=== PATIENT | female | born 1990 | race Caucasian/White ===

== ENCOUNTER 2016-07-13 12:14 | Emergency (ER) | payer BC, OTHER ==
[~2016-07-13] VITALS: Ht 160 cm; Wt 54.5 kg
[~2016-07-13 12:14] MED LIST: IBUP600T26 PO; Z.0.BCPILL PO
[2016-07-13 12:16] VITALS: BP 134/88; PULSE 100; RESP 15; TEMP 98.2; O2SAT 98
[2016-07-13] MEDS ORDERED: IBUP800T23 PO (12:39)
[2016-07-13] MEDS ORDERED: ROBA750T PO (12:39)
[2016-07-13] MEDS ORDERED: predniSONE 20 MG TAB PO ONE (12:45)
--- NOTE | 2016-07-13 12:49 | PD ---
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 She states approximately 2 hours prior to exam she was lifting a 400 pound patient with the assistance of another employee and was bending over. After the lifting had been completed she turned to walk out of the room and when she turned her neck she felt a sharp pulling sensation in the left posterior lateral neck. Pain was sharp and eye 10 in severity. She took ibuprofen 800 mg which brought it down to 4 out of 10. She feels as if it is stiff and painful to move. The pain does not radiate. She denies any pain in the midline. She denies weakness and paresthesias. She denies current or missed menstrual cycles. [facility] Past Medical History Medical History: Denies Significant Hx Diminished Hearing: No Immunizations Current: Yes ?: Not LMP: 07/06/16 Past Surgical History Surgical History: No Previous Surgery Social History Alcohol Use: Yes (RARE) Tobacco Use: No Substance Use: No Allergies-Medications (Allergen,Severity, Reaction): Coded Allergies: Penicillin (Verified Allergy, Intermediate, 07/13/16) Sulfa (Verified Allergy, Intermediate, 07/13/16) Reported Meds & Prescriptions Reported Meds & Active Scripts Active No Active Prescriptions or Reported Medications Review of Systems Musculoskeletal: Positive: Other (see the history of present illness) Neurologic: No: Weakness, Focal Abnormalities, Paresthesia, Sensory Disturbance Physical Exam Narrative GENERAL: Well-developed and well-nourished adult female in no acute distress. SKIN: Warm and dry. Good turgor without tenting. HEAD: Normocephalic and atraumatic. EYES: PERRL bilaterally, 5mm. EOMI bilaterally. No injection or icterus present. No proptosis. Lids without edema or erythema. NECK: Patient has pain with palpation of the left sternocleidomastoid muscle. Reduced range of motion in flexion and extension secondary to pain. Patient is able to axially rotate to the left greater than the right. No midline tenderness, crepitus or step-offs. Trachea midline, no JVD. No cervical or facial lymphadenopathy. CARDIOVASCULAR: Regular rate and rhythm without murmurs, rubs, clicks or gallops. Radial pulses 2+ bilaterally. RESPIRATORY: Clear to auscultation bilaterally with symmetrical rise and fall, no distress or use of accessory muscles. MUSCULOSKELETAL: No gait disturbances. Patient freely moving all four extremities spontaneously. Extremities without clubbing, cyanosis, or edema. No obvious deformities. NEUROLOGIC: CN II-XII grossly intact. Awake and alert. Strength 5/5 bilateral shoulder flexion, shoulder extension, shoulder abduction, shoulder adduction, elbow flexion, elbow extension. Sensation intact and strength 5/5 over radial, median, and ulnar nerve distributions bilaterally. Bilateral triceps, biceps, and brachioradialis DTRs 2+. Negative bilateral [place] sign. Normal speech. PSYCHIATRIC: Appropriate mood and affect; insight and judgment normal. 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 She has no bony tenderness, severe loss of range of motion or neurovascular signs. She is neurovascularly intact. Ibuprofen has helped her pain, she is requesting something additional at this time. As she was driving I believe muscle relaxers or not recommended as a pose a sedation risk. We'll give the patient 40 mg of prednisone by mouth to aid in acute inflammation reduction. Prescription given for diclofenac and muscle relaxers for home use.See discharge paperwork for further instructions. The plan was discussed with the patient who acknowledged their understanding and agreement. Reinforced the follow-up with primary care is critically important. Patient instructed on emergent conditions that should prompt return to ED. Diagnosis Primary Impression: Strain of sternocleidomastoid muscle Qualified Code: S16.1XXA - Strain of sternocleidomastoid muscle, initial encounter Patient Instructions: Cervical Neck Strain Exercises (GEN), Cervical Strain (ED ), General Instructions Additional Instructions: Rest for 24 hours, then gradually resume normal activity Avoid maneuvers or positions that aggravate the pain Avoid twisting/bending or lifting heavy items Take medications as prescribed Your medications may cause drowsiness. Do not take with alcohol or sedatives. Do not operate a motor vehicle or heavy machinery while on medication. Warm, moist heat applied to painful areas hourly as needed Try to massage and stretch affected muscles after applying heat to speed recovery Follow-up with PCP in 1-2 days Return to ED for any acute worsening of symptoms Med/Other Pt SpecificInfo: Prescription(s) given Scripts Methocarbamol (Robaxin)750 Mg [id number] Mg PO QID PRN (MUSCLE SPASM) #40 TAB 2 tabs QID for 2 days, then 1 tab QID thereafter Prov:Chi Sparrow MD 07/13/16 Ibuprofen 800 Mg [id number] Mg PO Q8H #21 TAB Prov:Chi Sparrow MD 07/13/16 Disposition: 01 DISCHARGE HOME Condition: Stable Андрей Gandhi III Jul 13, 2016 12:48
== END 2016-07-13 13:23 | disposition home or self-care (01) ==
LOC: NEPB 12:14
DX: S16.1XXA Strain of muscle, fascia and tendon at neck level, initial encounter (principal); X50.0XXA Overexertion from strenuous movement or load, initial encounter; Y93.F2 Activity, caregiving, lifting; Y92.239 Unspecified place in hospital as the place of occurrence of the external cause
CPT/HCPCS: 99283; J7512

== ENCOUNTER 2017-09-20 05:13 | Emergency (ER) | payer OTHER ==
[~2017-09-20] VITALS: Ht 160 cm; Wt 55.0 kg
[~2017-09-20 05:13] MED LIST changes: +IBUP1TAB7 PO; -IBUP600T26 PO; +ROBA750T PO; -Z.0.BCPILL PO
[2017-09-20 05:15] VITALS: BP 113/62; PULSE 111; RESP 16; TEMP 98; O2SAT 100
[2017-09-20] MEDS ORDERED: SODIUM CHLOR 0.9% 1000 ML INJ 1,000 ML IV ONE (05:45)
[2017-09-20] MEDS ORDERED: KETOROLAC TROMETHAMINE 30 MG/ML (IVP) VIAL IVP ONE (05:45)
--- NOTE | 2017-09-20 05:59 | PD ---
HPI Chief Complaint: Abdominal Pain Time Seen by Provider: 05:28 Travel History International Travel<30 days: No Contact w/Intl Traveler<30days: No Traveled to known affect area: No History of Present Illness HPI Is a 27-year-old woman who presents to the emergency department complaining of sore throat, fevers chills, body aches, lightheadedness, all starting last night worsening throughout the night. States she got up to use the bathroom and walked into a wall and fell backward on the tile floor. She believes she got knocked out. She states she feels very poorly, and is worried about hitting her head. History Past Medical History Medical History: Denies Significant Hx Tetanus Vaccination: < 5 Years Influenza Vaccination: Yes LMP: 08/22/2017 Social History Alcohol Use: Yes (RARE) Tobacco Use: No Allergies-Medications (Allergen,Severity, Reaction): Coded Allergies: Sulfa (Sulfonamide Antibiotics) (Unverified Allergy, Intermediate, 09/20/17) penicillin G (Unverified Allergy, Intermediate, 09/20/17) Reported Meds & Prescriptions Reported Meds & Active Scripts Active Robaxin (Methocarbamol) 750 Mg Tab 750 Mg PO QID PRN 2 tabs QID for 2 days, then 1 tab QID thereafter Ibuprofen 800 Mg Tab 800 Mg PO Q8H Review of Systems Except as stated in HPI: all other systems reviewed are Neg Physical Exam Narrative GENERAL: Well-appearing 27-year-old woman, no acute distress. SKIN: Focused skin assessment warm/dry. HEAD: Atraumatic. Normocephalic. EYES: Pupils equal and round. No scleral icterus. No injection or drainage. ENT: No nasal bleeding or discharge. Mucous membranes pink and moist. TMs normal. Throat a little bit injected with some enlarged tonsils. No obvious purulence. NECK: Trachea midline. No midline tenderness. Full range of motion. No meningismus. CARDIOVASCULAR: Regular rate and rhythm. No murmur appreciated. RESPIRATORY: No accessory muscle use. Clear to auscultation. Breath sounds equal bilaterally. GASTROINTESTINAL: Abdomen soft, non-tender, nondistended. Hepatic and splenic margins not palpable. MUSCULOSKELETAL: No obvious deformities. No clubbing. No cyanosis. No edema. NEUROLOGICAL: Awake and alert. No obvious cranial nerve deficits. Motor grossly within normal limits. Normal speech. PSYCHIATRIC: Appropriate mood and affect; insight and judgment normal. Data Data Last Documented VS Vital Signs Date Time Temp Pulse Resp B/P (MAP) Pulse Ox O2 Delivery O2 Flow Rate FiO2 09/20/17 05:15 98.0 111 16 113/62 (79) 100 Orders Orders Iv Access Insert/Monitor (09/20/17 05:37) Complete Blood Count With Diff (09/20/17 05:37) Comprehensive Metabolic Panel (09/20/17 05:37) Group A Rapid Strep Screen (09/20/17 05:37) Influenzae A/B Antigen (09/20/17 05:37) Sodium Chlor 0.9% 1000 Ml Inj (Ns 1000 M (09/20/17 05:45) Ketorolac Inj (Toradol Inj) (09/20/17 05:45) Strep Culture (Group A) (09/20/17 05:44) Labs Laboratory Tests Test 09/20/17 05:44 White Blood Count 13.0 TH/MM3 Red Blood Count 4.32 MIL/MM3 Hemoglobin 13.3 GM/DL Hematocrit 38.2 % Mean Corpuscular Volume 88.4 FL Mean Corpuscular Hemoglobin 30.8 PG Mean Corpuscular Hemoglobin Concent 34.8 % Red Cell Distribution Width 12.7 % Platelet Count 185 TH/MM3 Mean Platelet Volume 8.7 FL Neutrophils (%) (Auto) 90.2 % Lymphocytes (%) (Auto) 4.8 % Monocytes (%) (Auto) 4.6 % Eosinophils (%) (Auto) 0.4 % Basophils (%) (Auto) 0.0 % Neutrophils # (Auto) 11.7 TH/MM3 Lymphocytes # (Auto) 0.6 TH/MM3 Monocytes # (Auto) 0.6 TH/MM3 Eosinophils # (Auto) 0.1 TH/MM3 Basophils # (Auto) 0.0 TH/MM3 CBC Comment DIFF FINAL Differential Comment Blood Urea Nitrogen 8 MG/DL Creatinine 0.64 MG/DL Random Glucose 125 MG/DL Total Protein 6.9 GM/DL Albumin 4.0 GM/DL Calcium Level 8.8 MG/DL Alkaline Phosphatase 43 U/L Aspartate Amino Transf (AST/SGOT) 20 U/L Alanine Aminotransferase (ALT/SGPT) 20 U/L Total Bilirubin 0.6 MG/DL Sodium Level 139 MEQ/L Potassium Level 3.4 MEQ/L Chloride Level 107 MEQ/L Carbon Dioxide Level 23.1 MEQ/L Anion Gap 9 MEQ/L Estimat Glomerular Filtration Rate 111 ML/MIN [facility] Medical Decision Making Medical Screen Exam Complete: Yes Emergency Medical Condition: Yes Interpretation(s) LABS: CBC remarkable for mild leukocytosis. CMP unremarkable. Influenza negative. Strep negative Differential Diagnosis Influenza, strep, viral syndrome, lightheadedness, dizziness, electrolyte abnormalities, head injury, concussion, ICH, other Narrative Course Medical decision making 27-year-old woman with fevers chills myalgias sore throat lightheadedness suggestive of viral syndrome, flu, or strep. She also feels like she passed out and hit her head pretty hard. Boyfriend is with her states that the thumb will come up because she had so hard. She seemed confused afterwards. She looks well. This fall from standing seems very unlikely to result in intracranial hemorrhage. I recommended against head CT. We did discuss to [place] head CT rule. Will rediscuss after get their initial results back if she still uncomfortable will consider head CT, otherwise recommend against it at this point. Diagnosis Primary Impression: Influenza-like illness Patient Instructions: General Instructions Additional Instructions: Take Aleve as needed for fever or body aches. Drink plenty of fluids stay well-hydrated. Take Mucinex DM as needed for cough. Return to the emergency part for any worsening headache, abdominal pain, shortness of breath, or any other new or worsening symptoms. Disposition: 01 DISCHARGE HOME Condition: Stable Pankaj Puri MD Sep 20, 2017 05:59
[2017-09-20 06:03] LABS: AUTOMATED NEUTROPHIL # 11.7 TH/MM3 (1.8-7.7); EOSINOPHIL # 0.1 TH/MM3 (0-0.4); EOSINOPHIL % 0.4 % (0.0-4.0); HEMATOCRIT 38.2 % (35.0-46.0); HEMOGLOBIN 13.3 GM/DL (11.6-15.3); LYMPH % 4.8 % (9.0-44.0); LYMPHOCYTE # 0.6 TH/MM3 (1.0-4.8); MEAN CELL VOLUME 88.4 FL (80.0-100.0); MEAN CORPUSCULAR HEMOGLOBIN 30.8 PG (27.0-34.0); MEAN CORPUSCULAR HGB CONC 34.8 % (32.0-36.0); MEAN PLATELET VOLUME 8.7 FL (7.0-11.0); MONO % 4.6 % (0.0-8.0); MONOCYTE # 0.6 TH/MM3 (0-0.9); NEUT % 90.2 % (16.0-70.0); PLATELET COUNT 185 TH/MM3 (150-450); RED BLOOD COUNT 4.32 MIL/MM3 (4.00-5.30); RED CELL DISTRIBUTION WIDTH 12.7 % (11.6-17.2)
[2017-09-20 06:23] LABS: AST (GOT) 20 U/L (15-37); BICARBONATE 23.1 MEQ/L (21.0-32.0); BLOOD UREA NITROGEN 8 MG/DL (7-18); CALCIUM 8.8 MG/DL (8.5-10.1); CHLORIDE 107 MEQ/L (98-107); CREATININE 0.64 MG/DL (0.50-1.00); GLOMERULAR FILTRATION RATE 111 ML/MIN (>89); GLUCOSE,RANDOM 125 MG/DL (74-106); SODIUM (NA) 139 MEQ/L (136-145)
[2017-09-20 06:25] LABS: ALT (GPT) 20 U/L (10-53)
[2017-09-20 06:26] LABS: ALKALINE PHOSPHATASE 43 U/L (45-117); TOTAL BILIRUBIN ADULT 0.6 MG/DL (0.2-1.0); TOTAL PROTEIN 6.9 GM/DL (6.4-8.2)
[2017-09-20 07:25] VITALS: BP 114/60
== END 2017-09-20 07:28 | disposition home or self-care (01) ==
LOC: NEPE 05:13
DX: J11.1 Influenza due to unidentified influenza virus with other respiratory manifestations (principal); R42 Dizziness and giddiness; D72.829 Elevated white blood cell count, unspecified; Z88.2 Allergy status to sulfonamides; Z88.0 Allergy status to penicillin
CPT/HCPCS: 80053; 85025; 87081; 87804; 87880; 96374; 99284; J1885; J7030